=== PATIENT | male | born 1985 | race Caucasian/White ===

== ENCOUNTER 2017-08-25 00:39 | Emergency (ER) | payer OTHER ==
[2017-08-25 00:59] VITALS: RESP 18; TEMP 99.3
--- NOTE | 2017-08-25 01:09 | ED PDOC ---
Arrival/HPI - General Historian: Patient <Eric Garrido A - Last Filed: 08/25/17 01:51> <Moy Sheth - Last Filed: 08/25/17 04:24> - General Chief Complaint: High Blood Pressure Time Seen by Provider: 08/25/17 00:56 - History of Present Illness Narrative History of Present Illness (Text): 08/25/17 01:06 31yo mal with Past medical history of hypertension who present with complaint of elevated BP. He reports history of hypertension. States he was diagnosed 4years ago. He states he stopped taking any antihypertensive 4months ago. States his BP . He states he had frontal and occipital headache and checked his BP and it was elevated. States he usually gets headache when his BP is elevated. He denies nuchal ridigty, nausea, vomiting, dizziness, chest pain, slurred speech, focal weakness, visual changes, any other complaint. (Eric Garrido A) Past Medical History - Provider Review Nursing Documentation Reviewed: Yes - Cardiac Hx Hypertension: Yes - Pulmonary Hx Respiratory Disorders: No - Neurological Hx Neurological Disorder: No - HEENT Hx HEENT Disorder: No - Renal Hx Renal Disorder: No - Endocrine/Metabolic Hx Endocrine Disorders: No - Hematological/Oncological Hx Blood Disorders: No - Integumentary Hx Dermatological Disorder: No - Musculoskeletal/Rheumatological Hx Musculoskeletal Disorders: No - Gastrointestinal Hx Gastrointestinal Disorders: No - Genitourinary/Gynecological Hx Genitourinary Disorders: No - Psychiatric Hx Psychophysiologic Disorder: No Hx Substance Use: No <Eric Garrido A - Last Filed: 08/25/17 01:51> Family/Social History - Physician Review Nursing Documentation Reviewed: Yes Family/Social History: Unknown Family HX Smoking Status: Never Smoked Hx Alcohol Use: No Hx Substance Use: No <Eric Garirdo A - Last Filed: 08/25/17 01:51> Allergies/Home Meds <Eric Garrido A - Last Filed: 08/25/17 01:51> <Moy Sheth - Last Filed: 08/25/17 04:24> Allergies/Adverse Reactions: Allergies No Known Allergies Allergy (Verified 08/25/17 00:54) Home Medications: Home Meds Medication Instructions Recorded Confirmed No Known Home Med 08/25/17 08/25/17 Review of Systems - Physician Review All systems were reviewed & negative as marked: Yes - Review of Systems Constitutional: Normal Eyes: Normal ENT: Normal Respiratory: Normal Cardiovascular: Normal Gastrointestinal: Normal Genitourinary Male: Normal Musculoskeletal: Normal Skin: Normal Neurological: Headache. absent: Dizziness, Focal Weakness, Speech Changes, Facial Droop Endocrine: Normal Hemo/Lymphatic: Normal Psychiatric: Normal <Diru,Happiness A - Last Filed: 08/25/17 01:51> Physical Exam Vital Signs Reviewed: Yes Temperature: Afebrile Blood Pressure: Hypertensive Pulse: Tachycardic Respiratory Rate: Normal Appearance: Positive for: Well-Appearing, Non-Toxic, Comfortable Pain Distress: None Mental Status: Positive for: Alert and Oriented X 3 - Systems Exam Head: Present: Atraumatic, Normocephalic Pupils: Present: PERRL Extroacular Muscles: Present: EOMI Conjunctiva: Present: Normal Mouth: Present: Moist Mucous Membranes Neck: Present: Normal Range of Motion. No: Meningeal Signs Respiratory/Chest: Present: Clear to Auscultation, Good Air Exchange. No: Respiratory Distress, Accessory Muscle Use Cardiovascular: Present: Regular Rate and Rhythm, Normal S1, S2. No: Murmurs Abdomen: No: Tenderness, Distention, Peritoneal Signs Back: Present: Normal Inspection Upper Extremity: Present: Normal Inspection. No: Cyanosis, Edema Lower Extremity: Present: Normal Inspection. No: Edema Neurological: Present: GCS=15, CN II-XII Intact, Speech Normal, Motor Func Grossly Intact, Normal Sensory Function, Normal Cerebellar Funct, Norm Deep Tendon Reflexes, Gait Normal, Memory Normal, Normal 2Pt Descrimination, Other ( No focal neurological deficit) Skin: Present: Warm, Dry, Normal Color. No: Rashes Psychiatric: Present: Alert, Oriented x 3, Normal Insight, Normal Concentration <Diru,Happiness A - Last Filed: 08/25/17 01:51> Vital Signs Temp Pulse Resp BP BP Pulse Ox 08/25/17 02:27 123 H 184/126 H 08/25/17 01:53 126 H 18 184/126 H 98 08/25/17 01:38 112 H 18 186/126 H 96 08/25/17 01:26 104 H 18 189/144 H 186/126 H 97 08/25/17 00:55 99.3 F 107 H 18 185/150 H 97 Medical Decision Making <Diru,Happiness A - Last Filed: 08/25/17 01:51> Reassessment Condition: Re-examined, Improved - Lab Interpretations I have reviewed the lab results: Yes - RAD Interpretation Crew Leader/Control Room Operator: Radiologist - EKG Interpretation Interpreted by ED Physician: Yes <Moy Sheth - Last Filed: 08/25/17 04:24> ED Course and Treatment: 08/25/17 01:40 31yo male with history of hypertension present with complaint of elevated BP. He was neurologically intact in Emergency department. Labs ordered EKG hydralazine 10mg Will reassess and f/u lab 08/25/17 01:50 Case is endorsed to Dr. Rangel to control BP, f/u labs and dispo pt accordingly. (Eric Garrido A) ct head FINDINGS: Brain: Minimal atrophy. No intracranial hemorrhage. No mass. Prominent cisterna magna. Dilated perivascular spaces vs chronic lacunar infarcts about LEFT basal ganglia. No definite edema. Ventricles: No hydrocephalus. Bones/joints: No acute fracture. Soft tissues: Unremarkable. Sinuses: No acute sinusitis. Mastoid air cells: No mastoid effusion. Orbits: Unremarkable as visualized. IMPRESSION: 1. No definite acute intracranial abnormality. 2. Incidental/non-acute findings are described above. 08/25/17 02:03 31yo mal with Past medical history of hypertension who present with complaint of elevated BP. He reports history of hypertension. States he was diagnosed 4years ago. He states he stopped taking any antihypertensive 4months ago. States his BP . He states he had frontal and occipital headache and checked his BP and it was elevated. States he usually gets headache when his BP is elevated. He denies nuchal ridigty, nausea, vomiting, dizziness, chest pain, slurred speech, focal weakness, visual changes, any other complaint. you were treated in the ED today for hx of hypertension and have been off your unknown name medication for the hutchinson 4 month and now having headache with elevated blood pressure but otherwise without any neck pain/nausea/vomiting/ dizziness/difficulty breathing/chest pain/abdomen pain/numbness/tingling/loss of limb function/pain with urination. You were otherwise breathing easily, talking easily with your tripper, good strength/sensation, walking easily, clear lungs, no abdomen tenderness, no fever temp 99.3, fast heart rate 107 and repeat 123, stable breathing rate 18, excellent oxygen level 97% room air, elevated blood pressure 185/50 and repeat 184/126 which we recommend repeat in tomorrow in primary care office to determine further treatment, you have blood tests no infection count 10, stable blood level hemoglobin 15/platelets 240, stable chemistry, except for mildly low potassium replaced, ALT 62 mildly elevated, heart blood test negative less than 0.01, urine test no acute sign of infection, radiology ct head No definite acute intracranial abnormality., ECG sinus rhythm, hydralazine, observation done in the ED with improvement in symptoms but still with high blood pressure and heart rate thus recommended to stay in the hospital further for additional observation/treatments but you refused and cautioned for complications/ but you stated you felt improved and wanted to go home, counselled to monitor blood pressure regularly and thus you wanted to go home with tripper. 1. Recommend follow-up primary care physician who is your couisin to review symptoms, review hypertensive control medication for you as you can't remember what you were on 4 months ago and to start medications, referral to neurology/neurosurgery to review your symptoms and for Prominent cisterna magna. Dilated perivascular spaces vs chronic lacunar infarcts about LEFT basal ganglia for further care., referral to cardiology to review your symptoms, referral to gastroenterology to review your symptoms and for mildly elevated liver to test to ensure further care, referral to urology for protein in urine to ensure no complications. 4. If any worsening pain, fever, chills, nausea, vomiting, difficulty breathing, numbness, loss of limb function, pain with urination or any medical condition then return to the ED. 08/25/17 03:38 08/25/17 04:19 08/25/17 04:22 (Ranasinghe,Moy) - Lab Interpretations Lab Results: 08/25/17 01:18 08/25/17 01:18 Lab Results 08/25/17 03:05: Urine Opiates Screen Negative, Urine Methadone Screen Negative, Ur Barbiturates Screen Negative, Ur Phencyclidine Scrn Negative, Ur Amphetamines Screen Negative, U Benzodiazepines Scrn Negative, U Oth Cocaine Metabols Negative, U Cannabinoids Screen Negative 08/25/17 03:05: Urine Color Yellow, Urine Appearance Clear, Urine pH 7.0, Ur Specific [place] 1.015, Urine Protein Trace H, Urine Glucose (UA) Negative, Urine Ketones Negative, Urine Blood Negative, Urine Nitrate Negative, Urine Bilirubin Negative, Urine Urobilinogen 0.2, Ur Leukocyte Esterase Negative, Urine RBC 0 - 2, Urine WBC 0 - 2, Ur Epithelial Cells 0 - 2 08/25/17 01:18: PT 13.0 H, INR 1.14 H, APTT 28.5 08/25/17 01:18: Sodium 144, Potassium 3.1 L, Chloride 99, Carbon Dioxide 30, Anion Gap 18, BUN 13, Creatinine 0.9, Est GFR ( Amer) > 60, Est GFR (Non- Af Amer) > 60, Random Glucose 103, Calcium 9.3, Magnesium 2.0, Total Bilirubin 0.8, AST 33, ALT 62 H, Alkaline Phosphatase 95, Lactate Dehydrogenase 538, Total Creatine Kinase 80, Troponin I < 0.01, Total Protein 7.8, Albumin 4.4, Globulin 3.4, Albumin/Globulin Ratio 1.3 08/25/17 01:18: WBC 10.8, RBC 5.52, Hgb 15.6, Hct 44.1, MCV 79.9 L, MCH 28.3, MCHC 35.4, RDW 12.9, Plt Count 240, MPV 10.8, Gran % 57.2, Lymph % (Auto) 34.9, [place] % (Auto) 7.0 H, Eos % (Auto) 0.7 L, Baso % (Auto) 0.2, Gran # 6.16, Lymph # (Auto) 3.8 H, Marion # (Auto) 0.8 H, Eos # (Auto) 0.1, Baso # (Auto) 0.02 - RAD Interpretation Radiology Orders: 08/25/17 02:00 HEAD W/O CONTRAST [CT] Stat - Medication Orders Current Medication Orders: Discontinued Medications Acetaminophen (Tylenol 325mg Tab) 650 mg PO STAT STA Stop: 08/25/17 01:40 Last Admin: 08/25/17 02:03 Dose: 650 mg [facility] Pain/Vitals Document 08/25/17 02:03 NIRALI (Rec: 08/25/17 02:04 [id number]) Location Pain Location Body Site Neck Description Intermittent Intensity 5 Scale Used Numeric Pain Behavior Facial Grimacing Aggravating Factors None Re-Assess: [facility] Pain/Vitals Document 08/25/17 03:03 (Rec: 08/25/17 03:55 [id number] Pain Reassessment Is This A Pain ReAssessment? Yes Sleep Is patient sleeping during reassessment? No Presence of Pain Presence of Pain No Pain Scale Used Pain Scale Used Numeric Location Intensity 0 Scale Used Numeric Hydralazine HCl (Apresoline) 10 mg IVP STAT STA Stop: 08/25/17 01:06 Last Admin: 08/25/17 01:26 Dose: 10 mg IVP Administration Document 08/25/17 01:26 (Rec: 08/25/17 01:41 [id number] Charges for Administration # of IVP Administrations 1 JUN Pulse and Blood Pressure Document 08/25/17 01:26 (Rec: 08/25/17 01:41 [id number] Pulse Pulse Rate (60-90) 113 Blood Pressure Blood Pressure (100/60-150/90) 186/126 Hydralazine HCl (Apresoline) 10 mg IVP STAT STA Stop: 08/25/17 02:15 Last Admin: 08/25/17 02:27 Dose: 10 mg IVP Administration Document 08/25/17 02:27 (Rec: 08/25/17 02:28 [id number] Charges for Administration # of IVP Administrations 1 MAR Pulse and Blood Pressure Document 08/25/17 02:27 (Rec: 08/25/17 02:28 [id number] Pulse Pulse Rate (60-90) 123 Blood Pressure Blood Pressure (100/60-150/90) 184/126 Potassium Chloride (K-Dur 20 Meq Er Tab) 40 meq PO STAT STA Stop: 08/25/17 02:04 Last Admin: 08/25/17 02:27 Dose: 40 meq Disposition/Present on Arrival - Present on Arrival History of DVT/PE: Yes History of Uncontrolled Diabetes: Yes Urinary Catheter: Yes History of Decub. Ulcer: Yes History Surgical Site Infection Following: None <Diru,Happiness A - Last Filed: 08/25/17 01:51> - Present on Arrival Any Indicators Present on Arrival: No - Disposition Have Diagnosis and Disposition been Completed?: Yes Disposition Time: 04:23 <RanasingMoy leach - Last Filed: 08/25/17 04:24> - Disposition Diagnosis: Hypertensive urgency Disposition: AGAINST MEDICAL ADVICE Condition: SERIOUS Additional Instructions: you were treated in the ED today for hx of hypertension and have been off your unknown name medication for the hutchinson 4 month and now having headache with elevated blood pressure but otherwise without any neck pain/nausea/vomiting/ dizziness/difficulty breathing/chest pain/abdomen pain/numbness/tingling/loss of limb function/pain with urination. You were otherwise breathing easily, talking easily with your tripper, good strength/sensation, walking easily, clear lungs, no abdomen tenderness, no fever temp 99.3, fast heart rate 107 and repeat 123, stable breathing rate 18, excellent oxygen level 97% room air, elevated blood pressure 185/50 and repeat 184/126 which we recommend repeat in tomorrow in primary care office to determine further treatment, you have blood tests no infection count 10, stable blood level hemoglobin 15/platelets 240, stable chemistry, except for mildly low potassium replaced, ALT 62 mildly elevated, heart blood test negative less than 0.01, urine test no acute sign of infection, radiology ct head No definite acute intracranial abnormality., ECG sinus rhythm, hydralazine, observation done in the ED with improvement in symptoms but still with high blood pressure and heart rate thus recommended to stay in the hospital further for additional observation/treatments but you refused and cautioned for complications/ but you stated you felt improved and wanted to go home, counselled to monitor blood pressure regularly and thus you wanted to go home with tripper. 1. Recommend follow-up primary care physician who is your couisin to review symptoms, review hypertensive control medication for you as you can't remember what you were on 4 months ago and to start medications, referral to neurology/neurosurgery to review your symptoms and for Prominent cisterna magna. Dilated perivascular spaces vs chronic lacunar infarcts about LEFT basal ganglia for further care., referral to cardiology to review your symptoms, referral to gastroenterology to review your symptoms and for mildly elevated liver to test to ensure further care, referral to urology for protein in urine to ensure no complications. 4. If any worsening pain, fever, chills, nausea, vomiting, difficulty breathing, numbness, loss of limb function, pain with urination or any medical condition then return to the ED. Forms: Telly ([place])
[2017-08-25 01:58] LABS: ALB/GLOB RATIO 1.3 (1.1-1.8); ALBUMIN 4.4 g/dL (3.0-4.8); ALT/SGPT 62 U/L (7-56); AST/SGOT 33 U/L (17-59); BLOOD UREA NITROGEN 13 mg/dL (7-21); CALCIUM 9.3 mg/dL (8.4-10.5); GFR AFRICAN-AMERICAN > 60; GFR NON-AFRICAN AMERICAN > 60
[2017-08-25] MEDS ORDERED: Potassium Chloride 20 mEq ER Tab PO STA (02:03)
[2017-08-25 02:05] LABS: INR 1.14 (0.93-1.08); PARTIAL THROMBOPLASTIN TIME 28.5 Seconds (25.1-36.5)
[2017-08-25 02:10] LABS: TROPONIN I < 0.01 ng/mL
[2017-08-25 02:17] LABS: BASO # 0.02 K/mm3 (0.0-2.0); BASO % 0.2 % (0.0-3.0); EOS # 0.1 (0.0-0.7); EOS % 0.7 % (1.5-5.0); GRAN # 6.16 (1.4-6.5); GRAN % 57.2 % (50.0-68.0); HEMOGLOBIN 15.6 g/dL (14.0-18.0); LYMPH # 3.8 (1.2-3.4); LYMPH % 34.9 % (22.0-35.0); MEAN CELL VOLUME 79.9 fl (80.0-105.0); MEAN CORPUSCULAR HEMOGLOBIN 28.3 pg (25.0-35.0); MEAN CORPUSCULAR HGB CONC 35.4 g/dl (31.0-37.0); MEAN PLATELET VOLUME 10.8 fl (7.0-11.0); MONO # 0.8 (0.1-0.6); RBC 5.52 10^6/uL (3.5-6.1); RED CELL DISTRIBUTION WIDTH 12.9 % (11.5-14.5); WHITE BLOOD COUNT 10.8 10^3/ul (4.5-11.0)
[2017-08-25 03:25] LABS: URINE APPEARANCE CLEAR (CLEAR); URINE BILIRUBIN NEGATIVE (NEGATIVE); URINE BLOOD NEGATIVE (NEGATIVE); URINE COLOR YELLOW (YELLOW); URINE GLUCOSE (UA) NEGATIVE (NEGATIVE); URINE LEUKOCYTE ESTERASE NEGATIVE Leu/uL (NEGATIVE); URINE PROTEIN TRACE mg/dL (<30 mg/dL); URINE UROBILINOGEN 0.2 E.U./dL (<1 E.U./dL)
--- NOTE | 2017-08-25 03:37 | CT ---
EXAM: CT Head Without Intravenous Contrast CLINICAL HISTORY: 31 years old, male; Pain; Headache; Additional info: 31yom, with hypertensive headache. Please eval. TECHNIQUE: Axial computed tomography images of the head/brain without intravenous contrast. All CT scans at this facility use one or more dose reduction techniques, viz.: automated exposure control; ma/kV adjustment per patient size (including targeted exams where dose is matched to indication; i.e. head); or iterative reconstruction technique. Coronal and sagittal reformatted images were created and reviewed. COMPARISON: No relevant prior studies available. FINDINGS: Brain: Minimal atrophy. No intracranial hemorrhage. No mass. Prominent cisterna magna. Dilated perivascular spaces vs chronic lacunar infarcts about LEFT basal ganglia. No definite edema. Ventricles: No hydrocephalus. Bones/joints: No acute fracture. Soft tissues: Unremarkable. Sinuses: No acute sinusitis. Mastoid air cells: No mastoid effusion. Orbits: Unremarkable as visualized. IMPRESSION: 1. No definite acute intracranial abnormality. 2. Incidental/non-acute findings are described above.
[2017-08-25 03:39] LABS: URINE EPITHELIAL CELLS 0 - 2 /hpf (0-5); URINE RBC 0 - 2 /hpf (0-2); URINE WBC 0 - 2 /hpf (0-6)
[2017-08-25 03:49] LABS: BARBITURATES, UR NEGATIVE (NEGATIVE); BENZODIAZEPINES, UR NEGATIVE (NEGATIVE); OPIATES, UR NEGATIVE (NEGATIVE); PHENCYCLIDINE, UR NEGATIVE (NEGATIVE)
[2017-08-25 04:36] VITALS: BP 159/101; PULSE 108; O2SAT 100
--- NOTE | 2017-08-25 10:31 | CARD ---
APPROVED REPORT EKG Measurement Heart [id number] CT 140P [id number] <Conclusion> Reversed Arm leads Sinus rhythm with occasional premature ventricular complexes and fusion complexes T wave abnormality, consider inferior ischemia Prolonged QT Abnormal ECG
== END 2017-08-25 04:36 | disposition left against medical advice (07) ==
LOC: ED 00:39
DX: I16.0 Hypertensive urgency (principal)
CPT/HCPCS: 70450; 80053; 80324; 80345; 80346; 80349; 80353; 80358; 80361; 81001; 82550; 83615; 83735; 83992; 84484; 85025; 85610; 85730; 93005; 96374; 96376; 99285; J0360

== ENCOUNTER 2018-02-10 16:37 | Emergency (ER) | payer OTHER ==
[2018-02-10 18:57] LABS: ALB/GLOB RATIO 1.1 (1.1-1.8); ALBUMIN 4.4 g/dL (3.0-4.8); ALT/SGPT 81 U/L (7-56); AST/SGOT 46 U/L (17-59); BLOOD UREA NITROGEN 12 mg/dL (7-21); CALCIUM 9.2 mg/dL (8.4-10.5); GFR NON-AFRICAN AMERICAN > 60
[2018-02-10 18:59] LABS: BASO # 0.03 K/mm3 (0.0-2.0); BASO % 0.3 % (0.0-3.0); EOS # 0.2 (0.0-0.7); EOS % 1.8 % (1.5-5.0); GRAN # 6.61 (1.4-6.5); GRAN % 55.6 % (50.0-68.0); HEMOGLOBIN 15.7 g/dL (14.0-18.0); LYMPH # 4.1 (1.2-3.4); LYMPH % 34.5 % (22.0-35.0); MEAN CELL VOLUME 82.2 fl (80.0-105.0); MEAN CORPUSCULAR HGB CONC 34.1 g/dl (31.0-37.0); MEAN PLATELET VOLUME 10.5 fl (7.0-11.0); MONO # 0.9 (0.1-0.6); MONO % 7.8 % (1.0-6.0); RBC 5.61 10^6/uL (3.5-6.1); RED CELL DISTRIBUTION WIDTH 12.8 % (11.5-14.5); WHITE BLOOD COUNT 11.9 10^3/uL (4.5-11.0)
[2018-02-10 19:00] VITALS: TEMP 98.2
--- NOTE | 2018-02-10 19:19 | CARD ---
APPROVED REPORT Date of service: 02/10/2018 EKG Measurement Heart [id number] <Conclusion> Normal sinus rhythm Normal Electrocardiogram
--- NOTE | 2018-02-10 19:24 | ED PDOC ---
Arrival/HPI - General Chief Complaint: Cough, Cold, Congestion Time Seen by Provider: 02/10/18 17:12 Historian: Patient - History of Present Illness Narrative History of Present Illness (Text): 02/10/18 19:13 32-year-old male with a history of hypertension presents today with a 3-4 day history of nasal congestion, sore throat, cough and chills. Patient states he has a history of hypertension and takes an unknown blood pressure medication. Patient states he did not take his blood pressure medication today. Patient denies chest pain or shortness of breath. No nausea vomiting diarrhea or constipation. Patient denies dizziness or weakness. Patient denies headaches. Patient states his brother sick with similar symptoms at home. Patient states cough is productive with yellow sputum. Past Medical History - Provider Review Nursing Documentation Reviewed: Yes - Travel History Have you recently traveled outside [place] w/in the past 3 mons?: No - Cardiac Hx Cardiac Disorders: Yes Hx Hypertension: Yes - Pulmonary Hx Respiratory Disorders: No - Neurological Hx Neurological Disorder: No - HEENT Hx HEENT Disorder: No - Renal Hx Renal Disorder: No - Endocrine/Metabolic Hx Endocrine Disorders: No - Hematological/Oncological Hx Blood Disorders: No - Integumentary Hx Dermatological Disorder: No - Musculoskeletal/Rheumatological Hx Musculoskeletal Disorders: No - Gastrointestinal Hx Gastrointestinal Disorders: No - Genitourinary/Gynecological Hx Genitourinary Disorders: No - Psychiatric Hx Psychophysiologic Disorder: No Hx Substance Use: No - Anesthesia Hx Anesthesia: No Family/Social History - Physician Review Nursing Documentation Reviewed: Yes Family/Social History: Unknown Family HX Smoking Status: Never Smoked Hx Alcohol Use: No Hx Substance Use: No Allergies/Home Meds Allergies/Adverse Reactions: Allergies No Known Allergies Allergy (Verified 08/25/17 00:54) Review of Systems - Review of Systems Constitutional: Fatigue, Other (chills). absent: Fevers ENT: Sore Throat, Sinus Congestion Respiratory: Cough, Sputum. absent: SOB Cardiovascular: absent: Chest Pain, Palpitations Gastrointestinal: absent: Abdominal Pain, Constipation, Diarrhea, Nausea, Vomiting Genitourinary Male: absent: Dysuria, Frequency, Hematuria Musculoskeletal: absent: Arthralgias, Back Pain, Neck Pain Skin: absent: Rash, Pruritis Neurological: absent: Headache, Dizziness Psychiatric: absent: Anxiety, Depression Physical Exam Vital Signs Reviewed: Yes Vital Signs Temp Pulse Resp BP Pulse Ox 02/10/18 18:55 98.2 F 92 H 17 173/113 H 100 02/10/18 18:22 86 180/110 H 02/10/18 16:54 98.3 F 86 18 190/145 H 99 Temperature: Afebrile Blood Pressure: Hypertensive Pulse: Regular Respiratory Rate: Normal Appearance: Positive for: Well-Appearing, Non-Toxic, Comfortable Pain Distress: None Mental Status: Positive for: Alert and Oriented X 3 - Systems Exam Head: Present: Atraumatic Mouth: Present: Moist Mucous Membranes Nose (External): Present: Atraumatic Neck: Present: Normal Range of Motion Respiratory/Chest: Present: Clear to Auscultation, Good Air Exchange. No: Respiratory Distress, Accessory Muscle Use, Wheezes, Retracting, Rhonchi, Tachypneic Cardiovascular: Present: Regular Rate and Rhythm, Normal S1, S2. No: Murmurs, Tachycardic Abdomen: No: Tenderness, Distention, Rebound, Guarding Back: Present: Normal Inspection Upper Extremity: Present: Normal ROM Lower Extremity: Present: Normal ROM. No: Edema Neurological: Present: GCS=15 Skin: Present: Warm, Dry, Normal Color. No: Rashes Psychiatric: Present: Alert, Oriented x 3 Medical Decision Making ED Course and Treatment: 02/10/18 19:25 32yr old male with hx of htn with elevated bp in er c/o flu like symptoms x 3-4 days. afebrile in er. no distress. Patient with a blood pressure of 190/145 given 10 mg of hydralazine IV cbc; wbc:11.9 Cmp; k; 3.1 ekg; normal sinus rhythm at 91 bpm normal axis no ST elevations cxr; chest x-ray no infiltrate or effusion Patient reassessment: Patient with blood pressure of 173/113. case discussed with dr. solis in depth; will add; 0.2mg of clonidine po. pt given tamiflu and zithromax for pt reassessment: despite medications patient blood pressure remains elevated at 177/126 02/10/18 19:57 Patient has been offered admission to the hospital and does not want to stay in the hospital. I had a long in-depth discussion with the patient regarding his elevated blood pressure and my concern for risk of stroke, heart attack, kidney failure, aneurysm, blindness and sudden . 02/10/18 20:07 Patient has been offered admission to the hospital and again has refused admission to the hospital. He was made aware of risk for stroke heart attack kidney failure, aneurysm, blindness and sudden . Patient states his pressure is high because he did not take his medication today. He states he has a primary care physician that he will follow up with. He states he has to go to work tomorrow and if he does not feel better he will return to the hospital. Patient has been advised to not leave the emergency room but has decided to go AGAINST MEDICAL ADVICE. The patient possesses capacity to make decisions and has voiced understanding to all my warnings of potential worsening of the condition for which medical care was sought. I have discussed all known and potential risks and consequences to the patient leaving AGAINST MEDICAL ADVICE. Patient is leaving against medical advise. AMA form signed. witness by BRENDA Patterson. Impression: hypertension, cough, flu like symptoms RETURN IMMEDIATELY IF YOU WISH TO CONTINUE YOUR CARE Follow up with the Brand Sales Consultant tomorrow Follow up with the primary care physician tomorrow. Take your medications as prescribed You have extremely elevated blood pressure and you are at high risk for stroke, heart attack, kidney failure, aneurysm and sudden . 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 Reassessment Condition: Re-examined, Unchanged - Lab Interpretations Lab Results: 02/10/18 18:35 02/10/18 18:35 Lab Results 02/10/18 18:35: WBC 11.9 H, RBC 5.61, Hgb 15.7, Hct 46.1, MCV 82.2, MCH 28.0, MCHC 34.1, RDW 12.8, Plt Count 286, MPV 10.5, Gran % 55.6, Lymph % (Auto) 34.5, Evans % (Auto) 7.8 H, Eos % (Auto) 1.8, Baso % (Auto) 0.3, Gran # 6.61 H, Lymph # (Auto) 4.1 H, Evans # (Auto) 0.9 H, Eos # (Auto) 0.2, Baso # (Auto) 0.03 02/10/18 18:35: Sodium 138, Potassium 3.1 L, Chloride 94 L, Carbon Dioxide 33, Anion Gap 14, BUN 12, Creatinine 0.8, Est GFR ( Amer) > 60, Est GFR (Non- Af Amer) > 60, Random Glucose 92, Calcium 9.2, Total Bilirubin 1.6 H, AST 46, ALT 81 H, Alkaline Phosphatase 127 H D, Total Protein 8.4 H, Albumin 4.4, Globulin 4.0, Albumin/Globulin Ratio 1.1 02/10/18 17:15: Influenza Typ A,B (EIA) Negative for flu a/b - RAD Interpretation Radiology Orders: 02/10/18 17:12 CHEST TWO VIEWS (PA/LAT) [RAD] Stat - Medication Orders Current Medication Orders: Discontinued Medications Clonidine HCl (Catapres) 0.2 mg PO STAT STA Stop: 02/10/18 19:11 Hydralazine HCl (Apresoline) 10 mg IVP STAT STA Stop: 02/10/18 17:42 Last Admin: 02/10/18 18:22 Dose: 10 mg IVP Administration Document 02/10/18 18:22 [facility] (Rec: 02/10/18 18:24 [id number] Charges for Administration # of IVP Administrations 1 JUN Pulse and Blood Pressure Document 02/10/18 18:22 [facility] (Rec: 02/10/18 18:24 [id number]) Pulse Pulse Rate (60-90 beats/min) 86 Blood Pressure Blood Pressure (100/60-150/90 mm Hg) 180/110 Disposition/Present on Arrival - Present on Arrival Any Indicators Present on Arrival: No History of DVT/PE: No History of Uncontrolled Diabetes: No Urinary Catheter: No History of Decub. Ulcer: No History Surgical Site Infection Following: None - Disposition Have Diagnosis and Disposition been Completed?: Yes Diagnosis: Hypertension, Cough, Flu-like symptoms Disposition: AGAINST MEDICAL ADVICE Disposition Time: 19:30 Patient Plan: Other (AMA) Condition: UNKNOWN Discharge Instructions (ExitCare): Malignant Hypertension (DC), High Blood Pressure Emergencies, Cough in Adults Additional Instructions: RETURN IMMEDIATELY IF YOU WISH TO CONTINUE YOUR CARE Follow up with the Brand Sales Consultant tomorrow Follow up with the primary care physician tomorrow. Take your medications as prescribed You have extremely elevated blood pressure and you are at high risk for stroke, heart attack, kidney failure, aneurysm and sudden . 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 Prescriptions: Azithromycin [Zithromax] 250 mg PO DAILY #4 tab Oseltamivir [Tamiflu] 75 mg PO BID #10 cap Referrals: Brock Shrestha MD [Staff Provider] - Follow up with primary Elmo Langley MD [Staff Provider] - Follow up with primary Neal Zuñiga MD [Family Provider] - Follow up with primary Forms: [employer] ([place]ish)
[2018-02-10] MEDS ORDERED: Potassium Chloride 20 mEq ER Tab PO STA (20:00)
[2018-02-10 20:20] LABS: TROPONIN I < 0.01 ng/mL
[2018-02-10 20:28] VITALS: BP 192/114; PULSE 98; RESP 18; O2SAT 100
--- NOTE | 2018-02-11 09:07 | RAD ---
Date of service: 02/10/2018 HISTORY: cough COMPARISON: No prior. TECHNIQUE: Chest PA and lateral FINDINGS: LUNGS: No active pulmonary disease. PLEURA: No significant pleural effusion identified. No pneumothorax apparent. CARDIOVASCULAR: No aortic atherosclerotic calcification present. Normal cardiac size. No pulmonary vascular congestion. OSSEOUS STRUCTURES: No significant abnormalities. VISUALIZED UPPER ABDOMEN: Normal. OTHER FINDINGS: None. IMPRESSION: No active disease.
== END 2018-02-10 20:48 | disposition left against medical advice (07) ==
LOC: ED 16:37
DX: I10 Essential (primary) hypertension (principal); J11.1 Influenza due to unidentified influenza virus with other respiratory manifestations; R05 Cough
CPT/HCPCS: 71046; 80053; 82550; 83615; 84484; 85025; 87804; 93005; 96374; 99284; J0360